=== PATIENT | male | born 1940 | race Two or more races ===

== ENCOUNTER 2025-04-29 16:23 | Inpatient (IN) | payer MEDICARE, BC ==
[~2025-04-29] VITALS: Ht 182.9 cm; Wt 67.6 kg
[2025-04-29] MEDS ORDERED: CARB1TAB21 PO (16:56)
[2025-04-29] MEDS ORDERED: SIMV10TA98 PO (16:56)
[2025-04-29 17:07] LABS: ABG BASE EXCESS 1.7 mmol/L (-2.0-3.0); ABG OXYGEN SATURATION 99.4 % (94.0-98.0); ABG PCO2 35.2 mmHg (35.0-48.0); ABG PH 7.470 (7.350-7.450); ABG PO2 382.9 mmHg (83.0-108.0); ABG TOTAL HEMOGLOBIN 12.5 G/dL (13.5-17.5); FRACTIONATED INSPIRED OXYGEN 100.0 %; SITE, ABG LEFT RADIAL
[2025-04-29 17:40] LABS: PLATELET COUNT (AUTO) 341 K/uL (150-450); RED BLOOD CELL COUNT(AUTO) 4.23 MIL/uL (4.5-6.0); RED CELL DISTRIBUTION WIDTH 15.1 % (11.5-15.0); WHITE BLOOD COUNT (AUTO) 8.8 K/uL (4.3-11.0)
[2025-04-29 17:45] LABS: CALCIUM, SERUM 9.1 mg/dL (8.5-10.1); CREATININE 0.9 mg/dL (0.6-1.3); SODIUM SERUM 138 mmol/L (136-145); UREA NITROGEN, BLOOD 21 mg/dL (7-18)
[2025-04-29 17:55] LABS: ASPARTATE AMINOTRANSFERASE 13 U/L (15-37); TOTAL PROTEIN, SERUM 7.3 g/dL (6.4-8.2)
[2025-04-29 18:16] LABS: LACTIC ACID 3.0 mmol/L (0.4-2.0)
[2025-04-29] MEDS ORDERED: MAG HYDROX/AL HYDROX/SIMETH 30 ML UDC PO PRN (18:30)
[2025-04-29] MEDS ORDERED: ACETAMINOPHEN 325 MG TABLET PO PRN (18:30)
[2025-04-29] MEDS ORDERED: ONDANSETRON HCL/PF 4 MG/2 ML VIAL IVP PRN (18:30)
[2025-04-29] MEDS ORDERED: MAGNESIUM HYDROXIDE 30 ML UDC PO PRN (18:30)
[2025-04-29] MEDS ORDERED: Z GUARD REMEDY 4 OZ OINT TP PRN (18:30)
[2025-04-29] MEDS ORDERED: DOSING PER PHARMACY-ZOSYN IV 1 EA EA XX PRN (18:30)
[2025-04-29] MEDS ORDERED: ZOLPIDEM TARTRATE 5 MG TABLET PO PRN (18:30)
[2025-04-29] MEDS ORDERED: ENOXAPARIN SODIUM 40 MG/0.4 ML DISP.SYRIN SQ SCH (18:30)
[2025-04-29] MEDS ORDERED: IOHEXOL-350 100 ML VIAL IV ONE (18:37)
[2025-04-29] MEDS ORDERED: CT SWABBABLE VALVE TRANS SET 1 EA INFUS.SET MC ONE (18:37)
[2025-04-29] MEDS ORDERED: IV NS 0.9% 250 ML IV ONE (18:38)
[2025-04-29] MEDS: PIPERACILLIN /TAZOBACTAM 3.375 G in IV D5W 50 ML IV ONE (19:00)
[2025-04-29] MEDS: IV NS 0.9% 1,000 ML BAG IV ONE (19:06)
[2025-04-29] MEDS: ENOXAPARIN SODIUM 60 MG/0.6 ML DISP.SYRIN SQ SCH (23:20)
[2025-04-29] MEDS: IV D5/0.45 NACL 1,000 ML IV PRN (23:25)
[2025-04-30] VITALS (12 sets, daily range): BP systolic 102–169; BP diastolic 61–79; TEMP 97.5–98.8; O2SAT 97–100
[2025-04-30] MEDS ORDERED: hydrALAZINE HCL IV 20 MG VIAL IV PRN (01:00)
[2025-04-30] MEDS: ZOSYN IVPB 3.375 G in IV D5W 50ml IV SCH (01:58)
[2025-04-30 06:26] LABS: PLATELET COUNT (AUTO) 310 K/uL (150-450); RED BLOOD CELL COUNT(AUTO) 4.07 MIL/uL (4.5-6.0); RED CELL DISTRIBUTION WIDTH 15.3 % (11.5-15.0); WHITE BLOOD COUNT (AUTO) 5.9 K/uL (4.3-11.0)
[2025-04-30 06:38] LABS: CALCIUM, SERUM 8.5 mg/dL (8.5-10.1); CREATININE 0.7 mg/dL (0.6-1.3); PHOSPHORUS 2.8 mg/dL (2.5-4.9); SODIUM SERUM 137.0 mmol/L (136-145); UREA NITROGEN, BLOOD 14.0 mg/dL (7-18)
[2025-04-30] MEDS: PANTOPRAZOLE 40 MG VIAL IV SCH (09:19)
[2025-04-30] MEDS: THERAHONEY GEL 1.5 OZ TUBE TP SCH (09:22)
[2025-04-30] MEDS: POTASSIUM CHLORIDE 20 MEQ POWDER PACKET PO ONE (10:29)
[2025-04-30] MEDS: CARBIDOPA/LEVODOPA 25/100 MG 1 UDTAB PO SCH (12:05)
[2025-04-30] MEDS: ACETYLCYSTEINE 10% SOLN 400 MG/4 ML VIAL NEB SCH (13:00)
[2025-04-30] MEDS ORDERED: GLYCOPYRROLATE 1 MG TABLET PO PRN (13:00)
[2025-04-30 14:06] LABS: IRON, SERUM 71 ug/dl (50-175)
[2025-04-30] MEDS: IPRATROPIUM NEB FS 0.5 MG/2.5 ML AMPUL.NEB NEB SCH (14:27)
[2025-04-30] MEDS: ALBUTEROL HALF STRENGTH 1.25 MG/3 ML VIAL.NEB NEB SCH (14:27)
[2025-04-30] MEDS: Z GUARD REMEDY 4 OZ OINT TP SCH (17:05)
[2025-04-30] MEDS: SIMVASTATIN 10 MG TABLET PO SCH (17:51)
[2025-05-01] VITALS (14 sets, daily range): BP systolic 118–166; BP diastolic 60–116; TEMP 97.7–99; O2SAT 95–100
[2025-05-01] MEDS: PANTOPRAZOLE 40 MG/PACK PACK PO SCH (10:00)
[2025-05-01 10:23] LABS: PLATELET COUNT (AUTO) 304 K/uL (150-450); RED BLOOD CELL COUNT(AUTO) 3.89 MIL/uL (4.5-6.0); RED CELL DISTRIBUTION WIDTH 15.3 % (11.5-15.0); WHITE BLOOD COUNT (AUTO) 4.9 K/uL (4.3-11.0)
[2025-05-01 10:28] LABS: CALCIUM, SERUM 9.1 mg/dL (8.5-10.1); CREATININE 0.9 mg/dL (0.6-1.3); SODIUM SERUM 141.0 mmol/L (136-145); UREA NITROGEN, BLOOD 7.0 mg/dL (7-18)
[2025-05-01 10:32] LABS: PHOSPHORUS 2.9 mg/dL (2.5-4.9)
[2025-05-01] MEDS: ENOXAPARIN SODIUM 40 MG/0.4 ML DISP.SYRIN SQ SCH (13:00)
[2025-05-01] MEDS: PIPERACILLIN /TAZOBACTAM 3.375 G in IV D5W 100 ML IV SCH (16:21)
[2025-05-01] MEDS: OLANZAPINE 10 MG VIAL IM ONE (19:08)
[2025-05-01 20:11] LABS: ABG BASE EXCESS -6.3 mmol/L (-2.0-3.0); ABG OXYGEN SATURATION 97.3 % (94.0-98.0); ABG PCO2 32.0 mmHg (35.0-48.0); ABG PH 7.370 (7.350-7.450); ABG PO2 105.6 mmHg (83.0-108.0); ABG TOTAL HEMOGLOBIN 11.2 G/dL (13.5-17.5); FLOW, BLOOD GAS 8.00 L/min (0.00-30.00); FRACTIONATED INSPIRED OXYGEN 52.0 %; SITE, ABG LEFT RADIAL
[2025-05-02] VITALS (13 sets, daily range): BP systolic 114–143; BP diastolic 63–87; TEMP 97.7–98.2; O2SAT 94–100
[2025-05-02 10:11] LABS: IMMUNOGLOBULIN A, SERUM 287 mg/dL (61-437); IMMUNOGLOBULIN M, SERUM 47 mg/dL (15-143)
[2025-05-02 12:31] LABS: CALCIUM, SERUM 9.1 mg/dL (8.5-10.1); CREATININE 1.0 mg/dL (0.6-1.3); PHOSPHORUS 2.9 mg/dL (2.5-4.9); SODIUM SERUM 134.0 mmol/L (136-145); UREA NITROGEN, BLOOD 9.0 mg/dL (7-18)
[2025-05-02] MEDS: POTASSIUM CL. PREMIX PERIPHER. 50 ML IV SCH (13:12)
[2025-05-02 13:28] LABS: PLATELET COUNT (AUTO) 330 K/uL (150-450); RED BLOOD CELL COUNT(AUTO) 4.08 MIL/uL (4.5-6.0); RED CELL DISTRIBUTION WIDTH 15.3 % (11.5-15.0); WHITE BLOOD COUNT (AUTO) 7.9 K/uL (4.3-11.0)
[2025-05-02] MEDS: ENSURE ENLIVE CHOC 237 ML CAN PO SCH (13:30)
[2025-05-02 16:16] LABS: OCCULT BLOOD STOOL NEGATIVE (NEGATIVE)
[2025-05-03 02:08] VITALS: O2SAT 96
[2025-05-03 02:18] VITALS: O2SAT 99
[2025-05-03 04:00] VITALS: O2SAT 95
[2025-05-03 07:10] LABS: CALCIUM, SERUM 8.8 mg/dL (8.5-10.1); CREATININE 0.9 mg/dL (0.6-1.3); SODIUM SERUM 136.0 mmol/L (136-145); UREA NITROGEN, BLOOD 10.0 mg/dL (7-18)
[2025-05-03 07:11] LABS: FREE KAPPA LT CHAINS SERUM 21.3 mg/L (3.3-19.4); FREE LAMBDA LT CHAIN SERUM 12.9 mg/L (5.7-26.3); KAPPA/LAMBDA RATIO SERUM 1.65 (0.26-1.65)
[2025-05-03 07:59] VITALS: O2SAT 96
[2025-05-03 08:00] VITALS: BP 134/87; TEMP 97.5; O2SAT 98
[2025-05-03 08:07] LABS: FOLIC ACID 4.7 ng/mL (>3.0)
[2025-05-03 08:16] VITALS: O2SAT 100
[2025-05-03] MEDS ORDERED: LACT-54 PO (11:01)
[2025-05-03] MEDS ORDERED: ALBU1.25 NEB (11:01)
[2025-05-03] MEDS ORDERED: ACET1OOV6 HHN (11:01)
[2025-05-03] MEDS ORDERED: IPRA0.2S9 NEB (11:01)
[2025-05-03] MEDS ORDERED: GLYC1.5T4 PO (11:01)
[2025-05-03] MEDS ORDERED: ASPI-1169 PO (11:26)
[2025-05-06 18:08] LABS: *SPE A/G RATIO 1.1 (0.7-1.7); *SPE ALBUMIN 3.1 g/dL (2.9-4.4); *SPE ALPHA-1-GLOBULIN 0.2 g/dL (0.0-0.4); *SPE ALPHA-2-GLOBULIN 0.7 g/dL (0.4-1.0); *SPE BETA GLOBULIN 1.0 g/dL (0.7-1.3); *SPE GLOBULIN, TOTAL 2.9 g/dL (2.2-3.9); *SPE M-SPIKE Not Observed g/dL (Not Observed); *SPE PROTEIN TOTAL 6.0 g/dL (6.0-8.5); *SPEGAMMA GLOBULIN 1.0 g/dL (0.4-1.8)
== END 2025-05-03 14:16 | disposition hospice, home (50) | DRG 205 ==
LOC: ER 16:34 → TELE-TD 18:53 → TELE1 04-30 10:11 → MEDSG1 05-03 09:28
PROVIDERS: ADMIT Student in an Organized Health Care Education/Training Program; ATTEND Student in an Organized Health Care Education/Training Program
DX: T17.418A Gastric contents in trachea causing other injury, initial encounter (principal); J96.01 Acute respiratory failure with hypoxia; I82.412 Acute embolism and thrombosis of left femoral vein; Z51.5 Encounter for palliative care; G20.A1 Parkinson's disease without dyskinesia, without mention of fluctuations; D64.9 Anemia, unspecified; E87.20 Acidosis, unspecified; Z66 Do not resuscitate; E86.0 Dehydration; Z20.822 Contact with and (suspected) exposure to COVID-19; E78.5 Hyperlipidemia, unspecified; R26.9 Unspecified abnormalities of gait and mobility; R32 Unspecified urinary incontinence; M19.90 Unspecified osteoarthritis, unspecified site; Z90.49 Acquired absence of other specified parts of digestive tract; E87.6 Hypokalemia; Z79.899 Other long term (current) drug therapy; R79.89 Other specified abnormal findings of blood chemistry; W44.8XXA Other foreign body entering into or through a natural orifice, initial encounter; Y92.009 Unspecified place in unspecified non-institutional (private) residence as the place of occurrence of the external cause
CPT/HCPCS: 36415; 36600; 71045-TC; 80048-TC; 80076-TC; 82272-TC; 82607-TC; 82728-TC; 82784; 82803-TC; 83540-TC; 83605-TC; 83735-TC; 83880; 84100-TC; 84155; 84165; 84443-TC; 84484-TC; 85025-TC; 85378-TC; 86334; 87040-TC; 92526; 92611; 93970-TC; 94760-TC; 94761-TC; 94799-TC; 97110-TC; 97116-TC; 97530-TC; A4223; G0378; J0360; J1650; J2470; J2543; J3480; J3490; J7050; J7060; Q9967